=== PATIENT | male | born 1960 | race African-American/Black ===

== ENCOUNTER 2023-11-04 08:37 | Observation (INO) ==
--- NOTE | 2023-11-04 08:50 | DR.GENAD ---
HPI Time Seen Time Seen by Provider: 11/04/23 08:54 Complaint/Symptoms Chief Complaint Doctors Comments: 62-year-old male sent in for evaluation. Patient was at work 2 days ago, became lightheaded. Was seen by primary care and had baseline labs drawn. They notified him today that was very anemic, hemoglobin 5.4. Patient feeling generally weak, but not bad. Denies any known loss of blood. States stools are normal color. Denies fever, chills, URI symptoms, nausea, vomiting, bowel or bladder issues. PSA test also very elevated at 25. Was seen last year with urology, Dr. Sommer. Was told he had a small spot of his prostate, was treated about 3 different times, no follow-up was scheduled. Nurses notes reviewed Nurses Notes Review: Yes Source History Provided: Patient Mode of Arrival Mode of Arrival[facility] Past Medical History: Hypertension Past Surgical History: No Family History History of Family Medical Conditions: Yes Family Medical History: Cancer and [place] Social History Does patient currently use any type of tobacco product: No Alcohol Use: Occasionally Do you use any recreational Drugs:: No ROS Review of Systems Constitutional: Malaise and Weakness Eyes: No Symptoms Reported ENTM: No Symptoms Reported Respiratoy: No Symptoms Reported Cardiovascular: No Symptoms Reported Gastrointestinal/Abdominal: No Symptoms Reported Genitourinary: No Symptoms Reported Neurological: Weakness Musculoskeletal: No Symptoms Reported Integumentary: No Symptoms Reported Hematologic/Lymphatic: No Symptoms Reported All Other Systems: Reviewed and Negative PE Vital Signs Vitals: Vital Signs Temperature 98.2 F Pulse Rate 89 Respiratory Rate 18 Blood Pressure 167/78 O2 Sat by Pulse Oximetry 100 General General Appearance: Alert and In No Apparent Distress Eyes Eye exam: PERRL and EOMI ENT ENT Exam: Normal Oropharynx and Mucous Membranes Moist Neck Neck Exam: Normal Inspection and Full ROM Respiratory Respiratory Exam: Normal Lung Sounds Bilat; negative Accessory Muscle Use or Respiratory Distress Cardiovascular Cardiovascular Exam: Regular Rate, Normal Rhythm and Normal Heart Sounds Abdominal Exam Abdominal Exam: Normal Bowel Sounds and Soft; negative Tenderness Extremities Extremities Exam: Normal Inspection; negative Edema Neurologic Neurological Exam: Alert, Oriented X3 and CN II-XII Intact; negative Motor Sensory Deficit Skin Skin Exam: Warm and Dry COURSE Treatment Treatment: 62-year-old male sent in for evaluation. Reportedly has anemia on recent blood work. Patient feeling fatigue, malaise, no pain. Workup initiated. Chest x-ray acceptable. Labs show hemoglobin low at 5.8. But lower platelets 80,000. Chemistries overall acceptable. Alkaline phosphatase is up a bit. Outpatient PSA was elevated at 25. Rectal exam shows enlarged prostate to be present, has brown stool. Will send over for Hemoccult testing. Patient with anemia, will recommend admission for transfusion of 2 units of packed red blood cells. 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 [facility] Labs Reviewed Laboratory Results Reviewed?: Yes 11/04/23 09:37 11/04/23 09:37 Laboratory: WBC 3.5 X10^3/uL (3.6-10.0) L 11/04/23 09:37 RBC 3.00 X10^6/uL (4.7-6.0) L 11/04/23 09:37 Hgb 5.8 g/dL (13.5-18.0) L* 11/04/23 09:37 Hct 20.0 % (42.0-54.0) L* 11/04/23 09:37 MCV 66.8 fL (80.0-100.0) L 11/04/23 09:37 MCH 19.2 pg (27.0-34.0) L 11/04/23 09:37 MCHC 28.8 g/dL (33.0-35.0) L 11/04/23 09:37 RDW 21.7 % (11.6-16.5) H 11/04/23 09:37 Plt Count 80 X10^3/uL (150.0-450.0) L 11/04/23 09:37 Plt Count Comment Decreased (ADEQUATE) 11/04/23 09:37 MPV 8.8 fL (7.4-11.0) 11/04/23 09:37 Neut % (Auto) 32.0 % (42.0-75.0) L 11/04/23 09:37 Lymph % (Auto) 62.3 % (21.0-51.0) H 11/04/23 09:37 [place] % (Auto) 4.9 % (0.0-13.0) 11/04/23 09:37 Eos % (Auto) 0.4 % (0.9-2.9) L 11/04/23 09:37 Baso % (Auto) 0.4 % (0.2-1.0) 11/04/23 09:37 Neut # (Auto) 1.1 x10^3/uL (2.2-4.8) L 11/04/23 09:37 Lymph # (Auto) 2.2 X10^3/uL (1.3-2.9) 11/04/23 09:37 [place] # (Auto) 0.2 x10^3/uL (0.3-0.8) L 11/04/23 09:37 Eos # (Auto) 0.0 x10^3/uL (0.0-0.2) 11/04/23 09:37 Baso # (Auto) 0.0 X10^3/uL (0.0-0.1) 11/04/23 09:37 Absolute Nucleated RBC 0.5 /100WBC 11/04/23 09:37 Total Counted 100 11/04/23 09:37 Neutrophils % (Manual) 64 % (39-76) 11/04/23 09:37 Band Neutrophils % 1 % (0-10) 11/04/23 09:37 Lymphocytes % (Manual) 33 % (13-43) 11/04/23 09:37 Monocytes % (Manual) 2 % (4-9) L 11/04/23 09:37 Plt Morphology Comment Normal (NORMAL) 11/04/23 09:37 RBC Morphology Abnormal (NORMAL) 11/04/23 09:37 Hypochromasia 3+ A 11/04/23 09:37 Poikilocytosis 1+ A 11/04/23 09:37 Anisocytosis 1+ A 11/04/23 09:37 Microcytosis 1+ A 11/04/23 09:37 Target Cells 1+ A 11/04/23 09:37 Sodium 138 mmol/L (136-145) 11/04/23 09:37 Corrected Sodium 139 mmol/L (136-145) 11/04/23 09:37 Potassium 3.8 mmol/L (3.5-5.1) 11/04/23 09:37 Chloride 104 mmol/L (98-107) 11/04/23 09:37 Carbon Dioxide 23.2 mmol/L (21-32) 11/04/23 09:37 BUN 4 mg/dL (7-18) L 11/04/23 09:37 Creatinine 0.70 mg/dL (0.70-1.30) 11/04/23 09:37 Est GFR (MDRD) Af Amer > 60 (>60) 11/04/23 09:37 Est GFR (MDRD) Non-Af > 60 (>60) 11/04/23 09:37 Glucose 127 mg/dL (65-99) H 11/04/23 09:37 Calcium 8.2 mg/dL (8.5-10.1) L 11/04/23 09:37 Corrected Calcium 9.0 mg/dL (8.5-10.1) 11/04/23 09:37 Total Bilirubin 1.30 mg/dL (0.2-1.0) H 11/04/23 09:37 AST 92 Units/L (15-37) H 11/04/23 09:37 ALT 21 Units/L (12-78) 11/04/23 09:37 Alkaline Phosphatase 160 Units/L (46-116) H 11/04/23 09:37 Total Protein 9.3 g/dL (6.4-8.2) H 11/04/23 09:37 Albumin 3.0 g/dL (3.4-5.0) L 11/04/23 09:37 Globulin 6.3 g/dL (2.5-4.5) H 11/04/23 09:37 Albumin/Globulin Ratio 0.5 Ratio (1.1-2.1) L 11/04/23 09:37 Lipase 109 Units/L (16-77) H 11/04/23 09:37 Stool Occult Blood Negative (NEGATIVE) 11/04/23 10:16 Stl Occult Blood (IFOB) Cancelled 11/04/23 10:16 Blood Type B POSITIVE 11/04/23 09:45 Crossmatch See Detail 11/04/23 09:37 + degree of pancytopenia - Hgb 5.8. XRAY XRAY Interpreted by: Both X-ray Results: CXR - no acute abnormalities Opioid Opioid Risk Tool Age (Neto box if 16-45): No History of Preadolescent Sexual Abuse: No Total: 0 Total Score Risk Category: Low Risk Copyright: Channing WARD predicting aberrant behaviors Discharge Plan Diagnosis Discharge Problem: Anemia Discharge Plan Patient Disposition: 09 ADMITTED INPATIENT Condition: Stable Orders to Discharge Patient Discharge Orders: Transfer (Routine); Ordered 11/04/23 Ordered By: Nitish Dietrich
[2023-11-04 09:05] VITALS: BMI 26.2
--- NOTE | 2023-11-04 09:08 | RAD ---
EXAM: Portable chest HISTORY: Anemia COMPARISON: None FINDINGS: Heart size is normal. Melani are normal. Lung hines are clear. No pleural effusions are identifie d. Bony thorax is unremarkable. IMPRESSION: No significant abnormality identified THIS IS AN ELECTRONICALLY VERIFIED FINAL REPORT 11/04/2023 9:05 AM - Electronically signed by Usman García MD
[2023-11-04 10:00] LABS: MEAN CORPUSCULAR HGB CONC 28.8 g/dL (33.0-35.0); MONOCYTES # (AUTO) 0.2 x10^3/uL (0.3-0.8); NEUTROPHILS # (AUTO) 1.1 x10^3/uL (2.2-4.8)
[2023-11-04 10:04] LABS: BASOPHILS % (AUTO) 0.4 % (0.2-1.0); EOSINOPHILS % (AUTO) 0.4 % (0.9-2.9); LYMPHOCYTES # (AUTO) 2.2 X10^3/uL (1.3-2.9); LYMPHOCYTES % (AUTO) 62.3 % (21.0-51.0); MEAN CORPUSCULAR HEMOGLOBIN 19.2 pg (27.0-34.0); MEAN CORPUSCULAR VOLUME 66.8 fL (80.0-100.0); MEAN PLATELET VOLUME 8.8 fL (7.4-11.0); MONOCYTES % (AUTO) 4.9 % (0.0-13.0); PLATELET COUNT 80 X10^3/uL (150.0-450.0); RED CELL DISTRIBUTION WIDTH 21.7 % (11.6-16.5); WHITE BLOOD COUNT 3.5 X10^3/uL (3.6-10.0)
[2023-11-04 10:06] LABS: ALANINE AMINOTRANSFERASE 21 Units/L (12-78); ALKALINE PHOSPHATASE 160 Units/L (46-116); ASPARTATE AMINO TRANSFERASE 92 Units/L (15-37); BLOOD UREA NITROGEN 4 mg/dL (7-18); CALCIUM 8.2 mg/dL (8.5-10.1); CARBON DIOXIDE 23.2 mmol/L (21-32); CHLORIDE 104 mmol/L (98-107); COR NA(FOR HYPERGLY) 139 mmol/L (136-145); GLUCOSE 127 mg/dL (65-99); HEMOGLOBIN 5.8 g/dL (13.5-18.0); LIPASE 109 Units/L (16-77); POTASSIUM 3.8 mmol/L (3.5-5.1); SODIUM 138 mmol/L (136-145); TOTAL PROTEIN 9.3 g/dL (6.4-8.2); eGFR NON BLACK RACES > 60 (>60)
[2023-11-04 10:34] LABS: BAND NEUTROPHILS % 1 % (0-10)
[2023-11-04 10:35] LABS: ANISOCYTOSIS 1+; HYPOCHROMASIA 3+; MICROCYTOSIS 1+; PLATELET MORPHOLOGY COMMENT NORMAL (NORMAL); POIKILOCYTOSIS 1+
[2023-11-04 10:36] LABS: TARGET CELLS 1+
[2023-11-04] MEDS ORDERED: CONSULT PHARMACY - POTASSIUM & MAGNESIUM XX SCH ×2 (12:28→19:00)
[2023-11-04] MEDS: K-DUR TAB 20 MEQ PO SCH (13:04)
[2023-11-04] MEDS: NS 1,000 ML IV 1,000 ML ONE (13:36)
[2023-11-04] MEDS: PROTONIX INJ 40 MG VIAL IVP SCH (18:41)
[2023-11-04 20:57] LABS: HEMOGLOBIN 7.6 g/dL (13.5-18.0)
[2023-11-04 21:02] LABS: HEMATOCRIT 24.8 % (42.0-54.0)
[2023-11-04] MEDS: MAG-OX TAB PO SCH (21:10)
[2023-11-05 05:38] LABS: HEMATOCRIT 24.8 % (42.0-54.0); MEAN CORPUSCULAR HEMOGLOBIN 21.7 pg (27.0-34.0); MONOCYTES # (AUTO) 0.3 x10^3/uL (0.3-0.8)
[2023-11-05 05:41] LABS: BASOPHILS % (AUTO) 0.4 % (0.2-1.0); EOSINOPHILS % (AUTO) 0.3 % (0.9-2.9); HEMOGLOBIN 7.7 g/dL (13.5-18.0); LYMPHOCYTES # (AUTO) 2.1 X10^3/uL (1.3-2.9); MEAN CORPUSCULAR VOLUME 70.2 fL (80.0-100.0); MEAN PLATELET VOLUME 8.6 fL (7.4-11.0); NEUTROPHILS # (AUTO) 1.8 x10^3/uL (2.2-4.8); NEUTROPHILS % (AUTO) 42.3 % (42.0-75.0); PLATELET COUNT 68 X10^3/uL (150.0-450.0); RED BLOOD COUNT 3.53 X10^6/uL (4.7-6.0); RED CELL DISTRIBUTION WIDTH 24.2 % (11.6-16.5); WHITE BLOOD COUNT 4.4 X10^3/uL (3.6-10.0)
[2023-11-05 05:52] LABS: ANISOCYTOSIS 3+; HYPOCHROMASIA 2+; MICROCYTOSIS SLIGHT; PLATELET MORPHOLOGY COMMENT NORMAL (NORMAL); POIKILOCYTOSIS PRESENT
[2023-11-05 05:53] LABS: TARGET CELLS PRESENT
[2023-11-05 05:56] LABS: ALANINE AMINOTRANSFERASE 15 Units/L (12-78); ALBUMIN 2.7 g/dL (3.4-5.0); ALKALINE PHOSPHATASE 125 Units/L (46-116); ASPARTATE AMINO TRANSFERASE 69 Units/L (15-37); BLOOD UREA NITROGEN 6 mg/dL (7-18); CALCIUM 8.2 mg/dL (8.5-10.1); CARBON DIOXIDE 25.9 mmol/L (21-32); CHLORIDE 103 mmol/L (98-107); COR CA(FOR HYPOALB) 9.2 mg/dL (8.5-10.1); CREATININE 0.63 mg/dL (0.70-1.30); GLUCOSE 89 mg/dL (65-99); MAGNESIUM 1.8 mg/dL (2.0-2.9); POTASSIUM 3.6 mmol/L (3.5-5.1); SODIUM 137 mmol/L (136-145); TOTAL PROTEIN 8.2 g/dL (6.4-8.2); eGFR NON BLACK RACES > 60 (>60)
[2023-11-05] MEDS ORDERED: CONSULT PHARMACY - POTASSIUM & MAGNESIUM XX SCH (07:00)
[2023-11-05] MEDS: NORVASC TAB 10 MG PO SCH (09:32)
[2023-11-05] MEDS: K-DUR TAB 20 MEQ PO SCH (09:32)
[2023-11-05] MEDS: MAG-OX TAB PO SCH (09:32)
[2023-11-05 12:37] VITALS: O2SAT 100
[2023-11-05 12:46] LABS: MONOCYTES # (AUTO) 0.4 x10^3/uL (0.3-0.8)
[2023-11-05 12:50] LABS: BASOPHILS % (AUTO) 0.5 % (0.2-1.0); NEUTROPHILS # (AUTO) 2.1 x10^3/uL (2.2-4.8); WHITE BLOOD COUNT 4.4 X10^3/uL (3.6-10.0)
[2023-11-05 12:58] LABS: EOSINOPHILS % (AUTO) 0.4 % (0.9-2.9); HEMATOCRIT 25.2 % (42.0-54.0); HEMOGLOBIN 7.7 g/dL (13.5-18.0); LYMPHOCYTES # (AUTO) 1.8 X10^3/uL (1.3-2.9); LYMPHOCYTES % (AUTO) 41.7 % (21.0-51.0); MEAN CORPUSCULAR HEMOGLOBIN 21.7 pg (27.0-34.0); MEAN CORPUSCULAR HGB CONC 30.7 g/dL (33.0-35.0); MEAN CORPUSCULAR VOLUME 70.7 fL (80.0-100.0); MEAN PLATELET VOLUME 8.7 fL (7.4-11.0); NEUTROPHILS % (AUTO) 48.4 % (42.0-75.0); PLATELET COUNT 68 X10^3/uL (150.0-450.0); RED BLOOD COUNT 3.57 X10^6/uL (4.7-6.0); RED CELL DISTRIBUTION WIDTH 23.9 % (11.6-16.5)
[2023-11-05 12:59] LABS: ALANINE AMINOTRANSFERASE 14 Units/L (12-78); ALBUMIN 2.6 g/dL (3.4-5.0); ALKALINE PHOSPHATASE 132 Units/L (46-116); ASPARTATE AMINO TRANSFERASE 64 Units/L (15-37); BLOOD UREA NITROGEN 6 mg/dL (7-18); CALCIUM 8.2 mg/dL (8.5-10.1); CARBON DIOXIDE 26.4 mmol/L (21-32); CHLORIDE 100 mmol/L (98-107); COR CA(FOR HYPOALB) 9.3 mg/dL (8.5-10.1); COR NA(FOR HYPERGLY) 135 mmol/L (136-145); CREATININE 0.76 mg/dL (0.70-1.30); GLUCOSE 167 mg/dL (65-99); POTASSIUM 3.6 mmol/L (3.5-5.1); SODIUM 133 mmol/L (136-145); TOTAL PROTEIN 8.4 g/dL (6.4-8.2); eGFR NON BLACK RACES > 60 (>60)
[2023-11-05 13:15] LABS: ANISOCYTOSIS 2+; HYPOCHROMASIA 2+; MICROCYTOSIS SLIGHT; OVALOCYTES SLIGHT; PLATELET MORPHOLOGY COMMENT NORMAL (NORMAL)
--- NOTE | 2023-11-05 18:06 | DR.H&P ---
H&P History & Physical for Day of: H&P Date: 11/04/23 Chief Complaint Chief Complaint: Lightheadedness History of Present Illness History of Present Illness: This is a pleasant 62-year-old black male who was sent to [facility] emergency department after being evaluated after feeling lightheaded at work two days ago. He visited his primary care doctor, who ran some baseline tests and informed him today that he is very anemic and that he had a hemoglobin level of 5.4. The patient denies seeing any blood or black stool. The patient feels generally weak but not too bad. He denies any known blood loss and states that his stools are normal in color. He also denies fever, chills, symptoms of a cold, nausea, vomiting, and any bowel or bladder issues. Additionally, his PSA test came back very elevated at 25. He had previously been seen by urologist Dr. Sommer last year, who informed him of a small spot in his prostate and treated him three times, but no follow-up was scheduled. Past Medical History Past Medical History: Hypertension Past Surgical History Surgical History: No History Family History Family Medical History: Cancer Social History Does patient currently use any type of tobacco product: No Does any household member use tobacco: No Alcohol Use: Occasionally Drug Use: None Medications Home Medications: Home Medications Medication Instructions Recorded Confirmed Type amlodipine 10 mg tablet 10 mg PO DAILY 11/04/23 11/04/23 History Allergies Allergies Allergy/AdvReac Type Severity Reaction Status Date / Time No Known Allergies Allergy Verified 11/04/23 09:04 Labs 11/05/23 12:35 11/05/23 12:35 Labs: Laboratory WBC 4.4 X10^3/uL (3.6-10.0) 11/05/23 12:35 RBC 3.57 X10^6/uL (4.7-6.0) L 11/05/23 12:35 Hgb 7.7 g/dL (13.5-18.0) L 11/05/23 12:35 Hct 25.2 % (42.0-54.0) L 11/05/23 12:35 MCV 70.7 fL (80.0-100.0) L 11/05/23 12:35 MCH 21.7 pg (27.0-34.0) L 11/05/23 12:35 MCHC 30.7 g/dL (33.0-35.0) L 11/05/23 12:35 RDW 23.9 % (11.6-16.5) H 11/05/23 12:35 Plt Count 68 X10^3/uL (150.0-450.0) L 11/05/23 12:35 Plt Count Comment Decreased (ADEQUATE) 11/05/23 12:35 MPV 8.7 fL (7.4-11.0) 11/05/23 12:35 Neut % (Auto) 48.4 % (42.0-75.0) 11/05/23 12:35 Lymph % (Auto) 41.7 % (21.0-51.0) 11/05/23 12:35 [place] % (Auto) 9.0 % (0.0-13.0) 11/05/23 12:35 Eos % (Auto) 0.4 % (0.9-2.9) L 11/05/23 12:35 Baso % (Auto) 0.5 % (0.2-1.0) 11/05/23 12:35 Neut # (Auto) 2.1 x10^3/uL (2.2-4.8) L 11/05/23 12:35 Lymph # (Auto) 1.8 X10^3/uL (1.3-2.9) 11/05/23 12:35 [place] # (Auto) 0.4 x10^3/uL (0.3-0.8) 11/05/23 12:35 Eos # (Auto) 0.0 x10^3/uL (0.0-0.2) 11/05/23 12:35 Baso # (Auto) 0.0 X10^3/uL (0.0-0.1) 11/05/23 12:35 Absolute Nucleated RBC 0.4 /100WBC 11/05/23 12:35 Total Counted 100 11/04/23 09:37 Neutrophils % (Manual) 64 % (39-76) 11/04/23 09:37 Band Neutrophils % 1 % (0-10) 11/04/23 09:37 Lymphocytes % (Manual) 33 % (13-43) 11/04/23 09:37 Monocytes % (Manual) 2 % (4-9) L 11/04/23 09:37 Plt Morphology Comment Normal (NORMAL) 11/05/23 12:35 RBC Morphology Abnormal (NORMAL) 11/05/23 12:35 Hypochromasia 2+ A 11/05/23 12:35 Poikilocytosis Present 11/05/23 05:06 Anisocytosis 2+ A 11/05/23 12:35 Microcytosis Slight A 11/05/23 12:35 Target Cells Present 11/05/23 05:06 Ovalocytes Slight A 11/05/23 12:35 Sodium 133 mmol/L (136-145) L 11/05/23 12:35 Corrected Sodium 135 mmol/L (136-145) L 11/05/23 12:35 Potassium 3.6 mmol/L (3.5-5.1) 11/05/23 12:35 Chloride 100 mmol/L (98-107) 11/05/23 12:35 Carbon Dioxide 26.4 mmol/L (21-32) 11/05/23 12:35 BUN 6 mg/dL (7-18) L 11/05/23 12:35 Creatinine 0.76 mg/dL (0.70-1.30) 11/05/23 12:35 Est GFR (MDRD) Af Amer > 60 (>60) 11/05/23 12:35 Est GFR (MDRD) Non-Af > 60 (>60) 11/05/23 12:35 Glucose 167 mg/dL (65-99) H 11/05/23 12:35 Calcium 8.2 mg/dL (8.5-10.1) L 11/05/23 12:35 Corrected Calcium 9.3 mg/dL (8.5-10.1) 11/05/23 12:35 Magnesium 1.8 mg/dL (2.0-2.9) L 11/05/23 05:06 Total Bilirubin 2.50 mg/dL (0.2-1.0) H 11/05/23 12:35 AST 64 Units/L (15-37) H 11/05/23 12:35 ALT 14 Units/L (12-78) 11/05/23 12:35 Alkaline Phosphatase 132 Units/L (46-116) H 11/05/23 12:35 Total Protein 8.4 g/dL (6.4-8.2) H 11/05/23 12:35 Albumin 2.6 g/dL (3.4-5.0) L 11/05/23 12:35 Globulin 5.8 g/dL (2.5-4.5) H 11/05/23 12:35 Albumin/Globulin Ratio 0.4 Ratio (1.1-2.1) L 11/05/23 12:35 Lipase 109 Units/L (16-77) H 11/04/23 09:37 Vitamin B12 409 pg/mL (193-986) 11/04/23 09:37 Folate 13.5 ng/mL (>8.6) 11/04/23 09:37 Stool Occult Blood Negative (NEGATIVE) 11/04/23 10:16 Stl Occult Blood (IFOB) Cancelled 11/04/23 10:16 Blood Type B POSITIVE 11/04/23 09:45 Antibody Screen Negative 11/04/23 09:37 Crossmatch See Detail 11/04/23 09:37 Review of Systems Constitutional: Weakness and Malaise; denies Fever, Chills or Sweats Eyes: No Symptoms Reported ENT: No Symptoms Reported Respiratory: No Symptoms Reported Cardiovascular: No Symptoms Reported Gastrointestinal: No Symptoms Reported Genitourinary: No Symptoms Reported Musculoskeletal: No Symptoms Reported Skin: No Symptoms Reported Neurological: No Symptoms Reported Physical Exam Vital Signs: Vital Signs Temperature 98.2 F Pulse Rate [Right] 76 Respiratory Rate 18 Blood Pressure [Left Arm] 152/72 O2 Sat by Pulse Oximetry 100 Oriented: Normal, Time, Person and Place; negative Not Oriented or Unable to test Eyes: Normal Ear: Normal Nose: Normal Throat: Normal Respiratory: Clear Throughout Cardiovascular: Normal Auscultation: Bowel Sounds: Normal Palpation: Normal Tenderness: Normal Skin: Normal Musculoskeletal: Normal Psychiatric: Normal Mood Description: Calm Affect: Normal Speech Pattern: Clear and Appropriate; negative Unclear, Inappropriate, Delayed or Slurred Assessment/Plan (1) Anemia: Status: Acute Plan: 2 units of packed red blood cells will be typed and crossed and transfused to the patient. We will premedicate him with Benadryl and Tylenol prior to transfusion. If the patient gets to 70 wet between the first and second dose of blood we will give him Lasix between those packs of red blood cells. (2) Primary hypertension: Status: Acute Plan: Continue with the patient's amlodipine 10 mg daily. Will follow his blood pressure and make any antihypertensive changes if we need to. Review H&P Reviewed: Yes Patient was examined?: Yes
--- NOTE | 2023-11-05 18:20 | PCM.PROG ---
Progress Note Progress Note for Day of Date of Exam: 11/05/23 Subjective Subjective: The patient reports he is feeling well this morning. I see his hemoglobin has gone up from 5. 8-7.7. I also see that his direct bilirubin has gone up from normal level to 2.9. I had the nurse to recheck it at noon today and he has come down to 2.5. I know that sometimes, during blood transfusions, the patient's bilirubin levels can go up transiently but then only normalized within 24 hours. We will keep him for another 24 hours to make sure that his bilirubin continues to come down and does not go back up. His blood pressure has increased and is 152/72, so we will keep an eye on that and adjust accordingly. The patient's PSA note is 25 coming in. He saw urologist, Dr. Sommer in [place], [place] last year and was treated for a nodule. The patient has not had a recent follow-up with them. He needs to be reminded of that so we will let him know. Also, his magnesium is low and we will replace that. If the patient is doing well tomorrow morning and his hemoglobin is up and stable he can possibly be discharged home. His Hemoccult I am told was negative. Past Medical Family Social History Allergies: Allergies No Known Allergies Allergy (Verified 11/04/23 09:04) Review of Systems ROS: No change since H&P Vital Signs and I&O's Vital Signs: Vital Signs Temperature 98.6 F Temperature 98.2 F Pulse Rate [Right] 84 Pulse Rate [Right] 76 Respiratory Rate 18 Respiratory Rate 18 Blood Pressure [Left Arm] 158/74 Blood Pressure [Left Arm] 152/72 O2 Sat by Pulse Oximetry 100 O2 Sat by Pulse Oximetry 100 Intake and Output: Intake & Output 11/03/23 11/04/23 11/05/23 11/06/23 11:59 11:59 11:59 11:59 Intake Total 2490 / 2490 560 / 560 Balance 2490 / 2490 560 / 560 Physical Exam Oriented: Normal, Time, Person and Place; negative Not Oriented or Unable to test Eyes: Normal Ear: Normal Nose: Normal Throat: Normal Cardiovascular: Normal Auscultation: Bowel Sounds: Normal Tenderness: Normal Skin: Normal Musculoskeletal: Normal Psychiatric: Normal Mood Description: Calm Affect: Normal Speech Pattern: Clear and Appropriate; negative Unclear, Inappropriate, Delayed or Slurred Laboratory and Diagnostics 11/05/23 12:35 11/05/23 12:35 Labs: Laboratory WBC 4.4 X10^3/uL (3.6-10.0) 11/05/23 12:35 RBC 3.57 X10^6/uL (4.7-6.0) L 11/05/23 12:35 Hgb 7.7 g/dL (13.5-18.0) L 11/05/23 12:35 Hct 25.2 % (42.0-54.0) L 11/05/23 12:35 MCV 70.7 fL (80.0-100.0) L 11/05/23 12:35 MCH 21.7 pg (27.0-34.0) L 11/05/23 12:35 MCHC 30.7 g/dL (33.0-35.0) L 11/05/23 12:35 RDW 23.9 % (11.6-16.5) H 11/05/23 12:35 Plt Count 68 X10^3/uL (150.0-450.0) L 11/05/23 12:35 Plt Count Comment Decreased (ADEQUATE) 11/05/23 12:35 MPV 8.7 fL (7.4-11.0) 11/05/23 12:35 Neut % (Auto) 48.4 % (42.0-75.0) 11/05/23 12:35 Lymph % (Auto) 41.7 % (21.0-51.0) 11/05/23 12:35 [place] % (Auto) 9.0 % (0.0-13.0) 11/05/23 12:35 Eos % (Auto) 0.4 % (0.9-2.9) L 11/05/23 12:35 Baso % (Auto) 0.5 % (0.2-1.0) 11/05/23 12:35 Neut # (Auto) 2.1 x10^3/uL (2.2-4.8) L 11/05/23 12:35 Lymph # (Auto) 1.8 X10^3/uL (1.3-2.9) 11/05/23 12:35 [place] # (Auto) 0.4 x10^3/uL (0.3-0.8) 11/05/23 12:35 Eos # (Auto) 0.0 x10^3/uL (0.0-0.2) 11/05/23 12:35 Baso # (Auto) 0.0 X10^3/uL (0.0-0.1) 11/05/23 12:35 Absolute Nucleated RBC 0.4 /100WBC 11/05/23 12:35 Total Counted 100 11/04/23 09:37 Neutrophils % (Manual) 64 % (39-76) 11/04/23 09:37 Band Neutrophils % 1 % (0-10) 11/04/23 09:37 Lymphocytes % (Manual) 33 % (13-43) 11/04/23 09:37 Monocytes % (Manual) 2 % (4-9) L 11/04/23 09:37 Plt Morphology Comment Normal (NORMAL) 11/05/23 12:35 RBC Morphology Abnormal (NORMAL) 11/05/23 12:35 Hypochromasia 2+ A 11/05/23 12:35 Poikilocytosis Present 11/05/23 05:06 Anisocytosis 2+ A 11/05/23 12:35 Microcytosis Slight A 11/05/23 12:35 Target Cells Present 11/05/23 05:06 Ovalocytes Slight A 11/05/23 12:35 Sodium 133 mmol/L (136-145) L 11/05/23 12:35 Corrected Sodium 135 mmol/L (136-145) L 11/05/23 12:35 Potassium 3.6 mmol/L (3.5-5.1) 11/05/23 12:35 Chloride 100 mmol/L (98-107) 11/05/23 12:35 Carbon Dioxide 26.4 mmol/L (21-32) 11/05/23 12:35 BUN 6 mg/dL (7-18) L 11/05/23 12:35 Creatinine 0.76 mg/dL (0.70-1.30) 11/05/23 12:35 Est GFR (MDRD) Af Amer > 60 (>60) 11/05/23 12:35 Est GFR (MDRD) Non-Af > 60 (>60) 11/05/23 12:35 Glucose 167 mg/dL (65-99) H 11/05/23 12:35 Calcium 8.2 mg/dL (8.5-10.1) L 11/05/23 12:35 Corrected Calcium 9.3 mg/dL (8.5-10.1) 11/05/23 12:35 Magnesium 1.8 mg/dL (2.0-2.9) L 11/05/23 05:06 Total Bilirubin 2.50 mg/dL (0.2-1.0) H 11/05/23 12:35 AST 64 Units/L (15-37) H 11/05/23 12:35 ALT 14 Units/L (12-78) 11/05/23 12:35 Alkaline Phosphatase 132 Units/L (46-116) H 11/05/23 12:35 Total Protein 8.4 g/dL (6.4-8.2) H 11/05/23 12:35 Albumin 2.6 g/dL (3.4-5.0) L 11/05/23 12:35 Globulin 5.8 g/dL (2.5-4.5) H 11/05/23 12:35 Albumin/Globulin Ratio 0.4 Ratio (1.1-2.1) L 11/05/23 12:35 Lipase 109 Units/L (16-77) H 11/04/23 09:37 Vitamin B12 409 pg/mL (193-986) 11/04/23 09:37 Folate 13.5 ng/mL (>8.6) 11/04/23 09:37 Stool Occult Blood Negative (NEGATIVE) 11/04/23 10:16 Stl Occult Blood (IFOB) Cancelled 11/04/23 10:16 Blood Type B POSITIVE 11/04/23 09:45 Antibody Screen Negative 11/04/23 09:37 Crossmatch See Detail 11/04/23 09:37 Plan (1) Anemia: Status: Acute Plan: 2 units of packed red blood cells were transfused yesterday and last night. His hemoglobin came up to 7.7 from 5.8. I do note that his platelets have gone down and his direct bilirubin is going up. We rechecked it at noon and it is starting to trend down now but still elevated at 2.5. We will watch him until tomorrow to make sure that his direct bilirubin continues to normalize. Also will keep on his blood platelets and see if they are increasin g. We have ordered a Hemoccult but I have not seen the result of it at this time. If it is positive we will need to consult general surgery so they can perform a EGD and/or colonoscopy. (2) Primary hypertension: Status: Acute Plan: Continue with the patient's amlodipine 10 mg daily. Will follow his blood pressure and make any antihypertensive changes if we need to. (3) Elevated prostate specific antigen greater than or equal to 20 ng/ml: Status: Acute Plan: We will remind the patient that he needs to call and set up an ap pointment with his urologist, Dr. Sommer for a recheck of his prostate. (4) Elevated AST (SGOT): Status: Acute Plan: Monitor daily. Patient's AST is are trending down. (5) Hypomagnesemia: Status: Acute Plan: Replace. (6) Thrombocytopenia: Status: Acute Plan: Follow-up Hemoccult. If positive, we will consult general surgery, Dr. Andersen, for EGD.
[2023-11-05] MEDS: TYLENOL 325 MG TAB PO PRN (20:20)
[2023-11-05 23:31] VITALS: RESP 18
[2023-11-06 05:29] LABS: BASOPHILS % (AUTO) 0.4 % (0.2-1.0); HEMOGLOBIN 7.8 g/dL (13.5-18.0); MEAN CORPUSCULAR HGB CONC 30.5 g/dL (33.0-35.0); MONOCYTES # (AUTO) 0.3 x10^3/uL (0.3-0.8)
[2023-11-06 05:38] LABS: EOSINOPHILS % (AUTO) 0.8 % (0.9-2.9); HEMATOCRIT 25.4 % (42.0-54.0); LYMPHOCYTES # (AUTO) 1.9 X10^3/uL (1.3-2.9); LYMPHOCYTES % (AUTO) 54.3 % (21.0-51.0); MEAN CORPUSCULAR HEMOGLOBIN 21.8 pg (27.0-34.0); MEAN CORPUSCULAR VOLUME 71.4 fL (80.0-100.0); MEAN PLATELET VOLUME 8.6 fL (7.4-11.0); MONOCYTES % (AUTO) 7.9 % (0.0-13.0); NEUTROPHILS # (AUTO) 1.3 x10^3/uL (2.2-4.8); NEUTROPHILS % (AUTO) 36.6 % (42.0-75.0); PLATELET COUNT 62 X10^3/uL (150.0-450.0); RED BLOOD COUNT 3.56 X10^6/uL (4.7-6.0); RED CELL DISTRIBUTION WIDTH 24.6 % (11.6-16.5); WHITE BLOOD COUNT 3.5 X10^3/uL (3.6-10.0)
[2023-11-06 05:41] LABS: ALANINE AMINOTRANSFERASE 15 Units/L (12-78); ALBUMIN 2.6 g/dL (3.4-5.0); ALKALINE PHOSPHATASE 124 Units/L (46-116); ASPARTATE AMINO TRANSFERASE 57 Units/L (15-37); BLOOD UREA NITROGEN 6 mg/dL (7-18); CALCIUM 8.2 mg/dL (8.5-10.1); CARBON DIOXIDE 25.4 mmol/L (21-32); CHLORIDE 102 mmol/L (98-107); COR CA(FOR HYPOALB) 9.3 mg/dL (8.5-10.1); CREATININE 0.64 mg/dL (0.70-1.30); GLUCOSE 94 mg/dL (65-99); POTASSIUM 3.4 mmol/L (3.5-5.1); SODIUM 136 mmol/L (136-145); TOTAL PROTEIN 8.1 g/dL (6.4-8.2); eGFR NON BLACK RACES > 60 (>60)
[2023-11-06 05:47] LABS: ANISOCYTOSIS 3+; HYPOCHROMASIA 2+; MICROCYTOSIS SLIGHT; PLATELET MORPHOLOGY COMMENT NORMAL (NORMAL)
[2023-11-06 05:48] LABS: OVALOCYTES PRESENT; TARGET CELLS PRESENT
[2023-11-06] MEDS ORDERED: CONSULT PHARMACY - POTASSIUM & MAGNESIUM XX SCH ×2 (07:00→08:00)
[2023-11-06 07:55] VITALS: BP 161/74; PULSE 70; TEMP 97.4
[2023-11-06] MEDS: K-DUR TAB 20 MEQ PO SCH (08:07)
[2023-11-06] MEDS ORDERED: K-DUR TAB 20 MEQ PO SCH (09:00)
--- NOTE | 2023-11-06 17:14 | PCM.DCPLAN ---
DISCHARGE SUMMARY Admission Date Date of Admission: 11/04/23 Discharge Date Discharge Date: 11/06/23 Admission Diagnoses (1) Anemia: Status: Acute (2) Primary hypertension: Status: Acute (3) Elevated prostate specific antigen greater than or equal to 20 ng/ml: Status: Acute (4) Elevated AST (SGOT): Status: Acute (5) Hypomagnesemia: Status: Acute (6) Thrombocytopenia: Status: Acute Discharge Medications Discharge Medications: Home Medication List amlodipine 10 mg tablet 10 mg PO DAILY 11/04/23 [History] Prescriptions: Hospital Course Latest Lab Results: Laboratory Last Values WBC 3.5 X10^3/uL (3.6-10.0) L 11/06/23 05:05 RBC 3.56 X10^6/uL (4.7-6.0) L 11/06/23 05:05 Hgb 7.8 g/dL (13.5-18.0) L 11/06/23 05:05 Hct 25.4 % (42.0-54.0) L 11/06/23 05:05 MCV 71.4 fL (80.0-100.0) L 11/06/23 05:05 MCH 21.8 pg (27.0-34.0) L 11/06/23 05:05 MCHC 30.5 g/dL (33.0-35.0) L 11/06/23 05:05 RDW 24.6 % (11.6-16.5) H 11/06/23 05:05 Plt Count 62 X10^3/uL (150.0-450.0) L 11/06/23 05:05 Plt Count Comment Decreased (ADEQUATE) 11/06/23 05:05 MPV 8.6 fL (7.4-11.0) 11/06/23 05:05 Neut % (Auto) 36.6 % (42.0-75.0) L 11/06/23 05:05 Lymph % (Auto) 54.3 % (21.0-51.0) H 11/06/23 05:05 [place] % (Auto) 7.9 % (0.0-13.0) 11/06/23 05:05 Eos % (Auto) 0.8 % (0.9-2.9) L 11/06/23 05:05 Baso % (Auto) 0.4 % (0.2-1.0) 11/06/23 05:05 Neut # (Auto) 1.3 x10^3/uL (2.2-4.8) L 11/06/23 05:05 Lymph # (Auto) 1.9 X10^3/uL (1.3-2.9) 11/06/23 05:05 [place] # (Auto) 0.3 x10^3/uL (0.3-0.8) 11/06/23 05:05 Eos # (Auto) 0.0 x10^3/uL (0.0-0.2) 11/06/23 05:05 Baso # (Auto) 0.0 X10^3/uL (0.0-0.1) 11/06/23 05:05 Absolute Nucleated RBC 0.2 /100WBC 11/06/23 05:05 Total Counted 100 11/04/23 09:37 Neutrophils % (Manual) 64 % (39-76) 11/04/23 09:37 Band Neutrophils % 1 % (0-10) 11/04/23 09:37 Lymphocytes % (Manual) 33 % (13-43) 11/04/23 09:37 Monocytes % (Manual) 2 % (4-9) L 11/04/23 09:37 Plt Morphology Comment Normal (NORMAL) 11/06/23 05:05 RBC Morphology Abnormal (NORMAL) 11/06/23 05:05 Hypochromasia 2+ A 11/06/23 05:05 Poikilocytosis Present 11/05/23 05:06 Anisocytosis 3+ A 11/06/23 05:05 Microcytosis Slight A 11/06/23 05:05 Target Cells Present 11/06/23 05:05 Ovalocytes Present 11/06/23 05:05 Sodium 136 mmol/L (136-145) 11/06/23 05:05 Corrected Sodium TNP 11/06/23 05:05 Potassium 3.4 mmol/L (3.5-5.1) L 11/06/23 05:05 Chloride 102 mmol/L (98-107) 11/06/23 05:05 Carbon Dioxide 25.4 mmol/L (21-32) 11/06/23 05:05 BUN 6 mg/dL (7-18) L 11/06/23 05:05 Creatinine 0.64 mg/dL (0.70-1.30) L 11/06/23 05:05 Est GFR (MDRD) Af Amer > 60 (>60) 11/06/23 05:05 Est GFR (MDRD) Non-Af > 60 (>60) 11/06/23 05:05 Glucose 94 mg/dL (65-99) 11/06/23 05:05 Calcium 8.2 mg/dL (8.5-10.1) L 11/06/23 05:05 Corrected Calcium 9.3 mg/dL (8.5-10.1) 11/06/23 05:05 Magnesium 2.0 mg/dL (2.0-2.9) 11/06/23 05:05 Total Bilirubin 2.20 mg/dL (0.2-1.0) H 11/06/23 05:05 AST 57 Units/L (15-37) H 11/06/23 05:05 ALT 15 Units/L (12-78) 11/06/23 05:05 Alkaline Phosphatase 124 Units/L (46-116) H 11/06/23 05:05 Total Protein 8.1 g/dL (6.4-8.2) 11/06/23 05:05 Albumin 2.6 g/dL (3.4-5.0) L 11/06/23 05:05 Globulin 5.5 g/dL (2.5-4.5) H 11/06/23 05:05 Albumin/Globulin Ratio 0.5 Ratio (1.1-2.1) L 11/06/23 05:05 Lipase 109 Units/L (16-77) H 11/04/23 09:37 Vitamin B12 409 pg/mL (193-986) 11/04/23 09:37 Folate 13.5 ng/mL (>8.6) 11/04/23 09:37 Stool Occult Blood Negative (NEGATIVE) 11/04/23 10:16 Stl Occult Blood (IFOB) Cancelled 11/04/23 10:16 Blood Type B POSITIVE 11/04/23 09:45 Antibody Screen Negative 11/04/23 09:37 Crossmatch See Detail 11/04/23 09:37 Hospital Course: Patient admitted from home via the ER after his PCP called him and advised that his hemoglobin was severely low. He was evaluated for weakness and dizziness. He was transfused here and responded very well. Most of his symptoms improved but he was kept an additional day due to elevated bilirubin following the transfusion. It has continued to trend down since then and patient has been eating, drinking, urinating, passing flatus without difficulty. Is able to sit up and stand up without any dizziness. Also noted that he had an elevated PSA and was being followed by Dr. Sommer. It was stressed to patient to follow-up with urology for evaluation of his greatly elevated PSA.
== END 2023-11-06 11:35 | disposition home or self-care (01) ==
LOC: MED/SURG 08:37 → ER 08:37 → MED/SURG 11:58
PROVIDERS: ADMIT Family Medicine; ATTEND Family Medicine
DX: E83.42 Hypomagnesemia; R74.01 Elevation of levels of liver transaminase levels; R97.20 Elevated prostate specific antigen [PSA]; D64.89 Other specified anemias; I10 Essential (primary) hypertension; R42 Dizziness and giddiness; R53.1 Weakness